=== PATIENT | female | born 1980 | race Caucasian/White ===

== ENCOUNTER → 2018-01-27 | Outpatient (CLI) | payer BC ==
[~2018-01-27] MED LIST: CLON1 PO
[2018-01-28 12:43] LABS: Source CERVIX/ENDOCERV
== END ==
LOC: LAB 10:02 → LAB SHORT 10:02
PROVIDERS: Student in an Organized Health Care Education/Training Program
DX: Z01.419 Encounter for gynecological examination (general) (routine) without abnormal findings (principal)
CPT/HCPCS: G0145

== ENCOUNTER → 2019-09-14 | Outpatient (CLI) | payer BC ==
[2019-09-16 19:05] LABS: CHLAMYDIA TRACHOMATIS, NAA Negative (Negative); NEISSERIA GONORRHOEAE, NAA Negative (Negative)
== END ==
LOC: LAB SHORT 16:30 → LAB EV 16:30
PROVIDERS: Student in an Organized Health Care Education/Training Program
DX: Z11.3 Encounter for screening for infections with a predominantly sexual mode of transmission (principal)
CPT/HCPCS: 87491; 87591

== ENCOUNTER → 2020-02-02 | Outpatient (CLI) | payer BC ==
[2020-02-03 08:32] LABS: Candida species (DNA Probe) Negative (NEGATIVE); G. vaginalis (DNA Probe) Positive (NEGATIVE); T. vaginalis (DNA Probe) Negative (NEGATIVE)
[2020-02-05 10:10] LABS: CHLAMYDIA BY NAA Negative (Negative); GONOCOCCUS BY NAA Negative (Negative); TRICH VAG BY NAA Positive (Negative)
== END ==
LOC: LAB EV 14:05 → LAB SHORT 14:05
PROVIDERS: Nurse Practitioner Family
DX: N76.0 Acute vaginitis (principal)
CPT/HCPCS: 87480; 87491; 87510; 87591; 87660; 87661

== ENCOUNTER → 2021-06-29 | Outpatient (CLI) | payer BC ==
[2021-07-03 14:10] LABS: HPV 16 Negative (Negative); HPV 18 Negative (Negative); HPV OTHER HR TYPES Negative (Negative)
== END ==
LOC: LAB 16:44 → LAB SHORT 16:44
PROVIDERS: Student in an Organized Health Care Education/Training Program
DX: Z01.419 Encounter for gynecological examination (general) (routine) without abnormal findings (principal)
CPT/HCPCS: 87624; G0145

== ENCOUNTER 2022-04-04 06:16 | Day surgery (SDC) | payer BC ==
[~2022-04-04] VITALS: Ht 160 cm; Wt 71.3 kg
[2022-04-04] MEDS ORDERED: ABILIFY MYCITE5 M2 PO (06:51)
[2022-04-04] MEDS ORDERED: TESTOSTERONE50 MG (06:53)
[2022-04-04] MEDS ORDERED: PROG100 (06:54)
[2022-04-04] MEDS ORDERED: MELO7.5 PO (06:55)
[2022-04-04] MEDS ORDERED: ANGELIQ (06:56)
== END 2022-04-04 08:10 | disposition home or self-care (01) ==
LOC: ORSCSDS 06:16
PROVIDERS: Orthopaedic Surgery
PROC: 01N50ZZ Release Median Nerve, Open Approach (ICD-10-PCS; principal; 2022-04-04 07:30)
DX: G56.03 Carpal tunnel syndrome, bilateral upper limbs (principal); F32.A Depression, unspecified; Z79.899 Other long term (current) drug therapy
CPT/HCPCS: J0171; J2250; J2704; J3010

== ENCOUNTER → 2023-06-25 | Outpatient (CLI) | payer BC ==
[~2023-06-25] MED LIST changes: +ABILIFY MYCITE5 M2 PO; +ANGELIQ; +MELO7.5 PO; +PROG100; +TESTOSTERONE50 MG
== END ==
LOC: LAB 08:04 → LAB SHORT 08:04
DX: R30.0 Dysuria (principal); R31.9 Hematuria, unspecified
CPT/HCPCS: 87077; 87086; 87186